=== PATIENT | female | born 1995 | race African-American/Black ===

== ENCOUNTER 2019-01-10 14:27 | Emergency (ER) | payer BC, MEDICAID ==
[~2019-01-10] VITALS: Ht 162.6 cm; Wt 47.0 kg
[2019-01-10 15:35] VITALS: BP 102/55
== END 2019-01-10 17:48 | disposition home or self-care (01) ==
LOC: ER 14:27
DX: J06.9 Acute upper respiratory infection, unspecified (principal)
CPT/HCPCS: 81025; 87070; 87430; 99283

== ENCOUNTER 2024-10-22 05:59 | Emergency (ER) | payer MEDICAID ==
[~2024-10-22] VITALS: Ht 162.6 cm; Wt 45.0 kg
[~2024-10-22 05:59] MED LIST: DOXY100C5 MT
[2024-10-22 06:04] VITALS: O2SAT 99
[2024-10-22 08:33] LABS: CLARITY URINE CLEAR (CLEAR); COLOR URINE YELLOW (YELLOW); GLUCOSE URINE NEGATIVE (NEGATIVE); KETONES URINE 3+ (NEGATIVE); LEUKOCYTE ESTERASE URINE NEGATIVE (NEGATIVE); NITRITE URINE NEGATIVE (NEGATIVE); OCCULT BLOOD URINE NEGATIVE (NEGATIVE); PH URINE 6.0 (4.5-8.0); PROTEIN URINE 1+ (NEGATIVE); SPECIFIC GRAVITY URINE 1.034 (1.005-1.030); UROBILINOGEN URINE 1.0 E.U./dL (0.2-1.0)
[2024-10-22 08:48] LABS: BACTERIA URINE TRACE; RBC URINE 0-2 /hpf (0-2); SQUAMOUS EPITHELIAL CELL URINE 2+ /lpf (RARE/1+); YEAST URINE NONE SEEN
[2024-10-22 08:49] LABS: MUCUS URINE 1+ /lpf (< = 2+)
[2024-10-22] MEDS ORDERED: CLOT10TR2 MT (10:33)
[2024-10-22] MEDS ORDERED: DOXY100C5 MT (12:05)
[2024-10-22] MEDS ORDERED: METR-167 MT (12:05)
[2024-10-22] MEDS: LIDOCAINE HCL 1% 20ML VIAL INFIL ONE (12:31)
[2024-10-22] MEDS: CEFTRIAXONE SODIUM 500MG VIAL IM ONE (12:31)
[2024-10-22 12:38] VITALS: BP 131/77; PULSE 69; RESP 16; TEMP 36.8; O2SAT 100
[2024-10-22 14:08] LABS: HEPATITIS B CORE AB IGM NEGATIVE (Negative)
[2024-10-25 04:09] LABS: CHLAMYDIA TRACHOMATIS NAA Positive (Negative); NEISSERIA GONORRHOEAE NAA Negative (Negative)
== END 2024-10-22 12:45 | disposition home or self-care (01) ==
LOC: ER 05:59
DX: T74.21XA Adult sexual abuse, confirmed, initial encounter (principal); N89.8 Other specified noninflammatory disorders of vagina; B37.0 Candidal stomatitis; Y92.89 Other specified places as the place of occurrence of the external cause
CPT/HCPCS: 87491; 87591; 81003; 81025; 87340; 86706; 86592; 36415; 86705; 96372; 99284; J0696; J2003; Z7610

== ENCOUNTER 2024-11-07 11:14 | Emergency (ER) | payer MEDICAID ==
[~2024-11-07] VITALS: Ht 162.6 cm; Wt 46.0 kg
[~2024-11-07 11:14] MED LIST changes: +CLOT10TR2 MT; +METR-167 MT
[2024-11-07 11:29] VITALS: O2SAT 100
[2024-11-07 11:57] VITALS: BP 118/80; PULSE 76; RESP 16; TEMP 36.9; O2SAT 98
== END 2024-11-07 11:56 | disposition home or self-care (01) ==
LOC: ER 11:14
DX: Z11.3 Encounter for screening for infections with a predominantly sexual mode of transmission (principal)
CPT/HCPCS: 99281